=== PATIENT | female | born 1990 | race Caucasian/White ===

== ENCOUNTER 2017-10-27 20:01 | Emergency (ER) | payer OTHER ==
--- NOTE | 2017-10-27 20:10 | ED Physician Documentation ---
General Adult - HISTORIAN Historian: patient <ChiquitaMily Minor - Last Filed: 10/27/17 20:09> - HPI Stated Complaint: laceration Chief Complaint: Laceration/Recheck/Suture Onset: minutes (30) Timing: still present Severity: mild - ROS CONST: no problems EYES/ENT: none CVS/RESP: none GI/: none MS/SKIN/LYMPH: none - PAST HX Past History: none Other History: none Surgeries/Procedures: none - SOCIAL HX Smoking History: non-smoker Alcohol Use: none Drug Use: none - FAMILY HX Family History: No <Raven Meléndez - Last Filed: 10/27/17 20:29> - HPI Additional Information: Patient presents to ED with laceration to left wrist. She states she was pushing down the trash in the trash can a metal lid cut her wrist. She is current on tetanus. (Raven Meléndez) - PAST HX Allergies/Adverse Reactions: Allergies Allergy/AdvReac Type Severity Reaction Status Date / Time No Known Allergies Allergy Unverified 08/10/13 10:09 - VITAL SIGNS Vital Signs: Vital Signs Temp Pulse Resp BP Pulse Ox 98.6 F 83 16 126/93 98 10/27/17 20:05 10/27/17 20:05 10/27/17 20:05 10/27/17 20:05 10/27/17 20:05 Procedures Wound Location: upper extremity Wound's Depth, Shape: superficial Wound Explored: clean Betadine Prep?: Yes Wound Debrided: minimal Wound Repaired With: Dermabond <Raven Meléndez - Last Filed: 10/27/17 20:29> General Adult Physical Exam - PHYSICAL EXAM GENERAL APPEARANCE: no distress RESPIRATORY: no resp distress, breath sounds normal CVS: reg rate & rhythm SKIN: warm/dry, normal color (2 cm superficial laceration on anterior left wrist) NEURO: oriented X3 <Raven Meléndez - Last Filed: 10/27/17 20:29> Discharge <Mily Porras - Last Filed: 10/27/17 20:09> Decision to Admit: NO Date of Decison to Admit: 10/27/17 Decision Time: 20:26 <Raven Meléndez - Last Filed: 10/27/17 20:29> Clincal Impression: Laceration Referrals: Rome Rose MD [STAFF PHYSICIAN] - 2 Days Additional Instructions: Keep wound dry. Condition: Good Disposition: 01 HOME, SELF-CARE
[2017-10-27 20:21] VITALS: BP 126/93
== END 2017-10-27 20:35 | disposition home or self-care (01) ==
LOC: ED 20:01
DX: S61.512A Laceration without foreign body of left wrist, initial encounter (principal); W26.8XXA Contact with other sharp object(s), not elsewhere classified, initial encounter; Y92.9 Unspecified place or not applicable; Y93.9 Activity, unspecified; Y99.9 Unspecified external cause status
CPT/HCPCS: 12001